=== PATIENT | male | born 2000 | race Caucasian/White ===

== ENCOUNTER 2020-03-02 14:56 | Emergency (ER) | payer OTHER, SELFPAY ==
[2020-03-02 15:18] VITALS: BP 149/56; PULSE 77; RESP 16; TEMP 37.4; O2SAT 100
--- NOTE | 2020-03-02 15:29 | ED.GENADULT ---
HPI - General Adult General Chief complaint: Nausea/Vomiting/Diarrhea Stated complaint: vomiting,abd pain Time Seen by Provider: 03/02/20 15:29 Source: patient Mode of arrival: ambulatory Limitations: no limitations History of Present Illness HPI narrative: Jack Campbell is a 19 yo male with PMH of depression who comes to express care after numerous days of having nausea exhaustion and stomach cramping, states he is found to be him to feel better. Wants to be checked out so that he can return to work Related Data Allergies Allergy/AdvReac Type Severity Reaction Status Date / Time No Known Allergies Allergy Verified 03/02/20 15:20 Review of Systems Review of Systems: Narrative: CONSTITUTIONAL: Denies fever, chills, sweats. EYES: Denies visual changes, redness, discharge. ENT: Denies rhinorrhea, congestion, sore throat, otalgia. CARDIOVASCULAR: Denies chest pain, palpitations, edema. RESPIRATORY: Denies dyspnea, wheezing, cough GASTROINTESTINAL: Denies abdominal pain, improved nausea and vomiting GENITOURINARY: Denies dysuria, hematuria, abnormal discharge SKIN: Denies rash or itching. NEUROLOGIC: Denies numbness, or focal weakness. PSYCHIATRIC: Denies anxiety or depression. [facility] Family History Family History Other Celiac disease Social History Social History (Updated 03/02/20 @ 15:31 by Rosalia Florian CNP) Smoking status: Current every day smoker Alcohol intake: current Comments At time of signature, I agree with nursing past medical, surgical, social and family history. There is no relevant family history pertinent to the presenting complaint. Exam Narrative: Exam Narrative: GENERAL: This is a well-nourished, well-developed patient, in mild distress. HEAD: normocephalic, atraumatic. EYES: Sclera clear/white. Vision is grossly intact. EARS: External ears normal, . Hearing grossly intact. NOSE: External nose normal without nasal discharge, nares without redness, no rhinorrhea. THROAT: Mucous membranes moist, posterior pharynx pink no exudate NECK: Neck supple, non-tender CARDIOVASCULAR: Regular rate and rhythm without murmurs, gallops, or rubs. RESPIRATORY: Clear to auscultation. Breath sounds equal bilaterally. No wheezes, rales, or rhonchi. GASTROINTESTINAL: Abdomen soft, non-tender, SKIN: warm, intact with no suspicious lesions or rash, good texture and turgor. NEURO: awake, alert, and oriented to person, place and time. There were no obvious focal neurologic abnormalities. Steady gait EXTREMITIES: Normal range of motion. BACK: Nontender without deformity Course Course Emergency Course: The physical exam essentially negative; note stating same Vital Signs Vital signs: Vital Signs Temperature 99.4 F 03/02/20 15:18 Pulse Rate 77 03/02/20 15:18 Respiratory Rate 16 03/02/20 15:18 Blood Pressure 149/56 H 03/02/20 15:18 Pulse Oximetry 100 03/02/20 15:18 Temperature 99.4 F 03/02/20 15:18 Pulse Rate 77 03/02/20 15:18 Respiratory Rate 16 03/02/20 15:18 Blood Pressure 149/56 H 03/02/20 15:18 Pulse Oximetry 100 03/02/20 15:18 Medical Decision Making Differential Diagnosis Differential Diagnosis: Nausea and vomiting versus gastroenteritis versus depression Vital Signs Vital Signs: Vital Signs Temperature 99.4 F 03/02/20 15:18 Pulse Rate 77 03/02/20 15:18 Respiratory Rate 16 03/02/20 15:18 Blood Pressure 149/56 H 03/02/20 15:18 Pulse Oximetry 100 03/02/20 15:18 Temperature 99.4 F 03/02/20 15:18 Pulse Rate 77 03/02/20 15:18 Respiratory Rate 16 03/02/20 15:18 Blood Pressure 149/56 H 03/02/20 15:18 Pulse Oximetry 100 03/02/20 15:18 Discharge Plan Discharge Clinical Impression: Dehydration Patient Disposition: Home, Self-Care Condition: Stable Instructions: Dehydration (ED) Follow-up/Referrals: PHYSICIAN,SENIOR DATABASE ENGINEER [Primary Care Provider] - [place]
== END 2020-03-02 15:37 | disposition home or self-care (01) ==
PROVIDERS: Emergency Provider Nurse Practitioner
DX: E86.0 Dehydration (principal); F17.200 Nicotine dependence, unspecified, uncomplicated
CPT/HCPCS: 99201; G0463

== ENCOUNTER 2021-01-23 10:03 | Emergency (ER) | payer OTHER, SELFPAY ==
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
[2021-01-23 10:10] VITALS: BP 139/57; PULSE 94; RESP 16; TEMP 36.9; O2SAT 100
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
== END 2021-01-23 11:52 | disposition home or self-care (01) ==
PROVIDERS: Emergency Provider Registered Nurse
DX: S80.02XA Contusion of left knee, initial encounter (principal); V49.50XA Passenger injured in collision with unspecified motor vehicles in traffic accident, initial encounter; R51.9 Headache, unspecified
CPT/HCPCS: 73564; 99213; G0463